=== PATIENT | female | born 1980 | race American Indian/Alaskan Native ===

== ENCOUNTER 2018-03-06 23:07 | Emergency (ER) | payer MEDICAID, OTHER ==
[2018-03-06 23:34] VITALS: BMI 25.6
[2018-03-06 23:43] VITALS: TEMP 98.1
[2018-03-06] MEDS ORDERED: Morphine 4 mg/ml ISec IVP STA (23:56)
[2018-03-06] MEDS ORDERED: Sodium Chloride 0.9% 1,000 ML IV STA (23:56)
--- NOTE | 2018-03-06 23:59 | ED PDOC ---
Arrival/HPI - General Chief Complaint: Abdominal Pain Time Seen by Provider: 03/06/18 23:13 Historian: Patient - History of Present Illness Narrative History of Present Illness (Text): 03/06/18 23:55 Patient is a 37 year old female whose past medical history includes ovarian cyst , pyelonephritis, and presents to the Emergency department complaining of lower left abdominal pain.States she has had similar discomfort intermittently over past few months. Patient notes experiencing nausea and decreased appetite, but denies any diarrhea, fever, urinary issues, or chills. Patient's last normal menstrual period was on 02/19/18 but reports intermittent spotting Time/Duration: < week Symptom Course: Worsening Context: Home Past Medical History - Provider Review Nursing Documentation Reviewed: Yes - Past History Past History: No Previous - Infectious Disease Hx of Infectious Diseases: None - Tetanus Immunization Tetanus Immunization: Unknown - Cardiac Hx Cardiac Disorders: No - Pulmonary Hx Respiratory Disorders: Yes Hx Asthma: Yes - Neurological Hx Neurological Disorder: No - HEENT Hx HEENT Disorder: No - Renal Hx Renal Disorder: No - Endocrine/Metabolic Hx Endocrine Disorders: No - Hematological/Oncological Hx Blood Disorders: No - Integumentary Hx Dermatological Disorder: No - Musculoskeletal/Rheumatological Hx Musculoskeletal Disorders: No - Gastrointestinal Hx Gastrointestinal Disorders: No - Genitourinary/Gynecological Hx Genitourinary Disorders: Yes Other/Comment: ovarian cyst - Psychiatric Hx Psychophysiologic Disorder: No Hx Substance Use: No - Surgical History Hx Section: Yes (2000) Other/Comment: removal of ovarian cyst - 2014 - Anesthesia Hx Anesthesia: Yes ( 2000) Hx Anesthesia Reactions: No - Suicidal Assessment Feels Threatened In Home Enviroment: No Family/Social History - Physician Review Nursing Documentation Reviewed: Yes Family/Social History: No Known Family HX Smoking Status: Current Some Days Smoker Hx Alcohol Use: Yes (socially) Frequency of alcohol use: Socially Hx Substance Use: No Hx Substance Use Treatment: No Allergies/Home Meds Allergies/Adverse Reactions: Allergies No Known Allergies Allergy (Verified 03/06/18 23:35) Review of Systems - Physician Review All systems were reviewed & negative as marked: Yes - Review of Systems Constitutional: absent: Fevers, Night Sweats Gastrointestinal: Abdominal Pain, Nausea. absent: Diarrhea Genitourinary Female: Normal Physical Exam Vital Signs Reviewed: Yes Vital Signs Temp Pulse Resp BP Pulse Ox 03/07/18 07:57 98.1 F 82 18 112/62 99 03/07/18 01:20 86 16 118/70 97 03/06/18 23:41 98.1 F 82 18 115/73 97 Temperature: Afebrile Blood Pressure: Normal Respiratory Rate: Normal Appearance: Positive for: Well-Appearing Mental Status: Positive for: Alert and Oriented X 3 - Systems Exam Head: Present: Atraumatic, Normocephalic Pupils: Present: PERRL Extroacular Muscles: Present: EOMI Conjunctiva: Present: Normal Mouth: Present: Moist Mucous Membranes Neck: Present: Normal Range of Motion Respiratory/Chest: Present: Clear to Auscultation, Good Air Exchange. No: Respiratory Distress, Accessory Muscle Use Cardiovascular: Present: Regular Rate and Rhythm, Normal S1, S2. No: Murmurs Abdomen: Present: Tenderness (mild to left lower abdomen), Normal Bowel Sounds. No: Distention, Peritoneal Signs, Rebound, Guarding, McBurney's Point Tender Genitourinary/Pelvic Exam: Present: Normal External Genitalia, Cervical os Closed. No: Vaginal Discharge, Vaginal Bleeding, Adenexal Tenderness, Adenexal Mass, Cervical Motion Tendernes, Odor Back: Present: Normal Inspection Upper Extremity: Present: Normal Inspection. No: Cyanosis, Edema Lower Extremity: Present: Normal Inspection. No: Edema Neurological: Present: GCS=15, CN II-XII Intact, Speech Normal Skin: Present: Warm, Dry, Normal Color. No: Rashes Psychiatric: Present: Alert, Oriented x 3, Normal Insight, Normal Concentration Medical Decision Making ED Course and Treatment: 03/07/18 00:02 Impression: Patient is a 37 year old female with abdominal pain and associated nausea. Differential Diagnosis included but are not limited to: ovarian cyst vs. gastroenteritis vs. UTI vs. diverticulitis. Plan: --labs --urinalysis --abdominal and pelvic CT with contrast --transvaginal US -- Reassess and disposition Prior Visits: Notes and results from previous visits were reviewed. Progress Notes: 03/07/18 03:00 EXAM: US Pelvis Complete, Transabdominal US Pelvis, Transvaginal US Duplex Arterial/Venous of the Pelvis, Complete CLINICAL HISTORY: 37 years old, female; Pain; Pelvic pain TECHNIQUE: Real-time transabdominal and transvaginal pelvic ultrasound (complete) with image documentation. Transvaginal imaging was used for better evaluation of the endometrium and adnexa. Real-time duplex ultrasound scan of the arterial and venous flow of the pelvis with color Doppler flow and spectral waveform analysis. COMPARISON: No relevant prior studies available. FINDINGS: Uterus/cervix: Heterogeneous thickened endometrial stripe measuring 16 mm. Correlation with patient's menstrual cycle status is recommended. Transabdominal images demonstrate uterus measuring 8.7 x 4.2 x 5.3 cm. No myometrial mass. Right ovary: The right ovary measures 2.3 x 1.8 x 2.4 cm.Duplex assessment demonstrates presence of color Doppler signal and spectral Doppler waveform in right ovary. No torsion. Left ovary: There is left ovarian dominant follicle measuring 1.3 x 1.3 x 1.7 cm. The left ovary measures 2.7 x 2.2 x 3.4 cm. Duplex assessment demonstrates presence of color Doppler signal and spectral Doppler waveform in left ovary. No torsion. Free fluid: No free fluid. Bladder: Unremarkable. Wall is normal thickness for degree of distention. IMPRESSION: 1. Heterogeneous thickened endometrial stripe measuring 16 mm. Correlation with patient's menstrual cycle status is recommended. 2. There is left ovarian dominant follicle measuring 1.3 x 1.3 x 1.7 cm. Dictated and Authenticated by: Serg Márquez MD 03/07/2018 2:51 AM Eastern Time ([place] & [place]) - Lab Interpretations Lab Results: 03/07/18 00:46 03/07/18 00:46 Lab Results 03/07/18 00:46: WBC 9.9, RBC 4.06, Hgb 12.6, Hct 36.6, MCV 90.1, MCH 31.0, MCHC 34.4, RDW 12.8, Plt Count 574 H, MPV 8.7 03/07/18 00:46: Sodium 145, Potassium 4.3, Chloride 103, Carbon Dioxide 26, Anion Gap 20, BUN 11, Creatinine 0.8, Est GFR ( Amer) > 60, Est GFR (Non- Af Amer) > 60, Random Glucose 89, Calcium 10.0, Total Bilirubin 0.2, AST 26, ALT 25, Alkaline Phosphatase 75, Total Protein 7.8, Albumin 4.7, Globulin 3.1, Albumin/Globulin Ratio 1.5, Lipase 176 03/07/18 00:15: Urine Color Yellow, Urine Appearance Clear, Urine pH 6.0, Ur Specific Reading 1.010, Urine Protein Negative, Urine Glucose (UA) Negative, Urine Ketones Trace H, Urine Blood Moderate H, Urine Nitrate Negative, Urine Bilirubin Negative, Urine Urobilinogen 0.2, Ur Leukocyte Esterase Negative, Urine RBC 0 - 2, Urine WBC 0 - 2, Ur Epithelial Cells 0 - 2, Urine HCG, Qual Negative I have reviewed the lab results: Yes - RAD Interpretation Radiology Orders: 03/06/18 23:55 TRANSVAGINAL [US] Stat 03/07/18 03:59 ABD & PELVIS IV CONTRAST ONLY [CT] Stat Automatic Grinder Operator: Radiologist - Medication Orders Current Medication Orders: Discontinued Medications Sodium Chloride (Sodium Chloride 0.9%) 1,000 mls @ 999 mls/hr IV .Q1H1M STA Stop: 03/07/18 00:56 Last Admin: 03/07/18 00:35 Dose: 999 mls/hr eMAR Start Stop Document 03/07/18 00:35 MS (Rec: 03/07/18 00:35 MS [id number]) Intravenous Solution Start Date 03/07/18 Start Time 00:35 End Date 03/07/18 End time 01:35 Total Infusion Time 60 Morphine Sulfate (Morphine) 2 mg IVP STAT STA Stop: 03/06/18 23:57 Last Admin: 03/07/18 00:34 Dose: 2 mg MAR Pain Assessment Document 03/07/18 00:34 MS (Rec: 03/07/18 00:35 MS [id number]) Pain Reassessment Is this a pain reassessment? No Sleep Is patient sleeping during reassessment? No Presence of Pain Presence of Pain Yes Pain Scale Used Pain Scale Used Numeric Location Left, Right or Bilateral Left Pain Location Body Site Abdomen Description Description Intermittent Intensity of Pain at present 8 Pain Behavior Moaning Withdrawal from Touch Grasping Site Facial Grimacing IVP Administration Document 03/07/18 00:34 MS (Rec: 03/07/18 00:35 MS [id number]) Charges for Administration # of IVP Administrations 1 Ondansetron HCl (Zofran Inj) 4 mg IVP ONCE ONE Stop: 03/06/18 23:57 Last Admin: 03/07/18 00:35 Dose: 4 mg IVP Administration Document 03/07/18 00:35 MS (Rec: 03/07/18 00:35 MS [id number]) Charges for Administration # of IVP Administrations 1 - Scribe Statement The provider has reviewed the documentation as recorded by the Scribe Gwyn Boswell Provider Scribe Attestation: All medical record entries made by the Scribe were at my direction and personally dictated by me. I have reviewed the chart and agree that the record accurately reflects my personal performance of the history, physical exam, medical decision making, and the department course for this patient. I have also personally directed, reviewed, and agree with the discharge instructions and disposition Disposition/Present on Arrival - Present on Arrival Any Indicators Present on Arrival: No History of DVT/PE: No History of Uncontrolled Diabetes: No Urinary Catheter: No History of Decub. Ulcer: No History Surgical Site Infection Following: None - Disposition Have Diagnosis and Disposition been Completed?: Yes Diagnosis: Abdominal pain Disposition: HOME/ ROUTINE Disposition Time: 06:41 Patient Plan: Discharge Condition: GOOD Discharge Instructions (ExitCare): Acute Abdomen (Belly Pain), Adult (DC) Additional Instructions: Take meds as directed/follow up with your doctor this week/any recurrent worsening symptoms return to the emergency room Prescriptions: Naproxen [Naprosyn] 500 mg PO BID PRN #14 tab PRN Reason: Pain Referrals: Mallory Mejia MD [Staff Provider] - Follow up with primary Forms: [employer] (Armenian)
[2018-03-07 00:44] LABS: URINE BILIRUBIN NEGATIVE (NEGATIVE); URINE BLOOD MODERATE (NEGATIVE); URINE GLUCOSE (UA) NEGATIVE (NEGATIVE); URINE LEUKOCYTE ESTERASE NEGATIVE Leu/uL (NEGATIVE); URINE PROTEIN NEGATIVE mg/dL (<30 mg/dL); URINE UROBILINOGEN 0.2 E.U./dL (<1 E.U./dL)
[2018-03-07 00:47] LABS: URINE APPEARANCE CLEAR (CLEAR); URINE COLOR YELLOW (YELLOW)
[2018-03-07 00:48] LABS: HCG,QUALITATIVE URINE NEGATIVE (NEGATIVE)
[2018-03-07 00:58] LABS: URINE EPITHELIAL CELLS 0 - 2 /hpf (0-5); URINE RBC 0 - 2 /hpf (0-2); URINE WBC 0 - 2 /hpf (0-6)
[2018-03-07 01:03] LABS: HEMOGLOBIN 12.6 g/dL (12.0-16.0); MEAN CELL VOLUME 90.1 fl (80.0-105.0); MEAN CORPUSCULAR HGB CONC 34.4 g/dl (31.0-37.0); MEAN PLATELET VOLUME 8.7 fl (7.0-11.0); RBC 4.06 10^6/uL (3.5-6.1); RED CELL DISTRIBUTION WIDTH 12.8 % (11.5-14.5); WHITE BLOOD COUNT 9.9 10^3/ul (4.5-11.0)
[2018-03-07 01:10] LABS: ALB/GLOB RATIO 1.5 (1.1-1.8); ALBUMIN 4.7 g/dL (3.0-4.8); ALT/SGPT 25 U/L (7-56); AST/SGOT 26 U/L (14-36); BLOOD UREA NITROGEN 11 mg/dL (7-21); GFR AFRICAN-AMERICAN > 60; GFR NON-AFRICAN AMERICAN > 60; LIPASE 176 U/L (23-300)
--- NOTE | 2018-03-07 02:51 | US ---
EXAM: US Pelvis Complete, Transabdominal US Pelvis, Transvaginal US Duplex Arterial/Venous of the Pelvis, Complete CLINICAL HISTORY: 37 years old, female; Pain; Pelvic pain TECHNIQUE: Real-time transabdominal and transvaginal pelvic ultrasound (complete) with image documentation. Transvaginal imaging was used for better evaluation of the endometrium and adnexa. Real-time duplex ultrasound scan of the arterial and venous flow of the pelvis with color Doppler flow and spectral waveform analysis. COMPARISON: No relevant prior studies available. FINDINGS: Uterus/cervix: Heterogeneous thickened endometrial stripe measuring 16 mm. Correlation with patient's menstrual cycle status is recommended. Transabdominal images demonstrate uterus measuring 8.7 x 4.2 x 5.3 cm. No myometrial mass. Right ovary: The right ovary measures 2.3 x 1.8 x 2.4 cm.Duplex assessment demonstrates presence of color Doppler signal and spectral Doppler waveform in right ovary. No torsion. Left ovary: There is left ovarian dominant follicle measuring 1.3 x 1.3 x 1.7 cm. The left ovary measures 2.7 x 2.2 x 3.4 cm. Duplex assessment demonstrates presence of color Doppler signal and spectral Doppler waveform in left ovary. No torsion. Free fluid: No free fluid. Bladder: Unremarkable. Wall is normal thickness for degree of distention. IMPRESSION: 1. Heterogeneous thickened endometrial stripe measuring 16 mm. Correlation with patient's menstrual cycle status is recommended. 2. There is left ovarian dominant follicle measuring 1.3 x 1.3 x 1.7 cm.
[2018-03-07] MEDS ORDERED: Iohexol 350 MG/100 ML VIAL ONE (04:04)
[2018-03-07 07:57] VITALS: BP 112/62; PULSE 82; RESP 18; O2SAT 99
--- NOTE | 2018-03-07 08:56 | CT ---
PROCEDURE: CT Abdomen and Pelvis with contrast HISTORY: Left lower abdominal pain. COMPARISON: Comparison made with prior CT scan abdomen pelvis 07/26/2013. TECHNIQUE: Contrast dose: 96 cc Omnipaque 350 contrast material Radiation dose: Total exam DLP = 47.29 mGy-cm. This CT exam was performed using one or more of the following dose reduction techniques: Automated exposure control, adjustment of the mA and/or kV according to patient size, and/or use of iterative reconstruction technique. . FINDINGS: LOWER THORAX: Lung bases clear. No infiltrate effusion or basilar pneumothorax. Heart size normal. There is a tiny hiatal hernia. LIVER: The liver is mildly enlarged measuring nearly 20 cm in CC dimension. Mild diffuse fatty hepatic infiltration. There is a 3.5 x 3.7 x 3.8 cm rounded partially exophytic low-attenuation lesion arising from the anterior inferior margin left lobe liver which exhibits some peripheral on areas of nodular enhancement. Findings may represent a hemangioma. Consider followup [address] scan of the liver to confirm. Portal and splenic veins are opacified GALLBLADDER AND BILE DUCTS: Gallbladder is incompletely distended accounts for which presumably accounts for thick-walled appearance. The possibility of the chronic inflammatory changes of the gallbladder wall not excluded. Clinical correlation recommended. No obvious intraluminal gallbladder calculi. . PANCREAS: Unremarkable. No gross lesion or ductal dilatation. SPLEEN: Unremarkable. ADRENALS: No adrenal lesions seen. KIDNEYS AND URETERS: Kidneys demonstrate symmetric nephrograms. No evidence of nephrolithiasis or hydronephrosis. . There are no renal cysts. The No solid mass. VASCULATURE: Unremarkable. No aortic aneurysm. BOWEL: Evaluation of the bowel is limited due to the lack of oral contrast material. Stomach is incompletely distended which in part accounts for thick-walled appearance. Visualized loops of small bowel exhibit normal contour and caliber. No evidence of acute mechanical small bowel obstruction. APPENDIX: Normal-appearing appendix. PERITONEUM: Unremarkable. No free fluid. No free air. LYMPH NODES: No significant on lymphadenopathy small fat containing umbilical hernia. BLADDER: Urinary bladder is appears incompletely distended which may account for slight thick-walled appearance. Correlation with urinalysis recommended to exclude cystitis. The the REPRODUCTIVE: There is a small approximately 11 mm left adnexal follicular and suspected 14 mm right follicle or small cyst. . . BONES: There is mild levoscoliosis centered in the lower lumbar region. Osseous structures appear intact. OTHER FINDINGS: None. IMPRESSION: Mild hepatomegaly. Fatty hepatic infiltration. Probable hemangioma left lobe liver however followup of three-phase CT scan of the liver recommended to confirm and exclude other pathology. Small bilateral adnexal follicular cysts. The the
== END 2018-03-07 07:59 | disposition home or self-care (01) ==
LOC: ED 23:07
DX: R10.9 Unspecified abdominal pain (principal)
CPT/HCPCS: 74177; 76830; 80053; 81001; 83690; 84703; 85027; 96361; 96374; 96375; 99283; J2270; J2405; J7040; Q9967